=== PATIENT | male | born 1925 | race Caucasian/White ===

== ENCOUNTER → 2016-09-19 | Outpatient (CLI) | payer OTHER ==
[~2016-09-19] MED LIST: ALBINS INH; ALBUAER2 INH; ASPEC81 PO; FERR27TA5 PO; FINA5TAB PO; HYDC25 PO; ISOS60TA25 PO; LOSA100T65 PO; METO25TA56 PO; MOME220A INH; MULTCAP31 PO; NTRGSL/4 UT; OMEG10007 PO; SIMV20TA5 PO; TERA1CAP63 PO; TIOT1AER INH
--- NOTE | 2016-09-19 13:29 | DIAGNOSTIC IMAGING REPORT ---
CHEST 2 VIEWS ROUTINE CLINICAL HISTORY: J44.9 Chronic obstructive pulmonary [id number] emphysematous change COMPARISON STUDY: 10/06/2013 FINDINGS: Mild emphysematous change. No focal infiltrate. Diaphragms are smooth. No evidence for cardiac enlargement. Moderate degenerative change thoracic spine. IMPRESSION: Chronic and emphysematous change. No acute process. Electronically signed by: Aidan Goyal M.D. 09/19/2016 1:27 PM
== END | disposition home or self-care (01) ==
LOC: C.RAD1850 13:14
PROVIDERS: ATTEND Internal Medicine Pulmonary Disease
DX: J44.9 Chronic obstructive pulmonary disease, unspecified (principal)

== ENCOUNTER → 2016-12-15 | Outpatient (CLI) | payer OTHER ==
--- NOTE | 2016-12-15 15:18 | DIAGNOSTIC IMAGING REPORT ---
BILATERAL CAROTID DOPPLER STUDY HISTORY: Carotid stenosis I65.29 Carotid artery stenosis, [id number] Subclavian art COMPARISON: 05/15/2016 TECHNIQUE: Real-time, grayscale, and color Doppler sonography of the carotid arteries was performed. Imaging reviewed in the transverse and longitudinal planes. All measurements were calculated based on NASCET criteria. FINDINGS: Antegrade flow is seen in the bilateral vertebral arteries. The brachial pressures are hemodynamically similar. Moderate plaque formation bilaterally. The peak systolic velocity within the right ICA is 132. The right systolic ratio is 1.1. The peak systolic velocity within the left ICA is 12. The left systolic ratio is 0.55. Moderate increase in velocity characteristics left common carotid artery. Unchanging findings of a left subclavian steal IMPRESSION: 1. No major change from the prior study. 2. 50-60% stenosis right internal carotid artery. 3. Moderate narrowing left common carotid artery. 5. Left subclavian steal unchanged Electronically signed by: Aidan Goyal M.D. 12/15/2016 3:16 PM Dictated Date/Time: 12/15/2016 3:14 PM
== END | disposition home or self-care (01) ==
LOC: C.ULTR 13:18
PROVIDERS: ATTEND Surgery
DX: I65.21 Occlusion and stenosis of right carotid artery (principal); I77.1 Stricture of artery

== ENCOUNTER → 2017-01-26 | Outpatient (CLI) | payer OTHER ==
[2017-01-26 12:02] LABS: BASO % 0.5 %; BASO ABS # 0.03 K/uL (0-0.2); COMPLETE YES; EOS % 3.5 %; HEMATOCRIT 33.3 % (42-52); IG% 0.2 %; LYMPH ABS # 1.04 K/uL (1.2-3.4); MEAN CORPUSCULAR HEMOGLOBIN 31.7 pg (25-34); MEAN CORPUSCULAR HGB CONC 34.8 g/dl (32-36); MEAN PLATELET VOLUME 11.3 fL (7.4-10.4); MONO % 9.3 %; NEUT % 67.5 %; PLATELET COUNT 189 K/uL (130-400); RED BLOOD COUNT 3.66 M/uL (4.7-6.1); WHITE BLOOD COUNT 5.48 K/uL (4.8-10.8)
[2017-01-26 12:07] LABS: ALT/SGPT 24 U/L (12-78); BLOOD UREA NITROGEN 29 mg/dl (7-18); BUN/CREATININE RATIO 24.1 (10-20); CARBON DIOXIDE 23 mmol/L (21-32); CHLORIDE 103 mmol/L (98-107); CHOLESTEROL 142 mg/dl (0-200); GLUCOSE 100 mg/dl (70-99); SODIUM 136 mmol/L (136-145)
[2017-01-26 12:17] LABS: CALCIUM 9.5 mg/dl (8.5-10.1)
[2017-01-26 12:44] LABS: ESTIMATED AVERAGE GLUCOSE 128 mg/dl; HA1C FLAG Normal (Normal)
[2017-01-26 12:57] LABS: AST/SGOT 17 U/L (15-37); TRIGLYCERIDES 77 mg/dl (0-150); VERY LOW DENSITY LIPOPROT CALC 15 mg/dl
[2017-01-26 13:15] LABS: ALB/GLOB RATIO 1.3 (0.9-2)
[2017-01-26 13:58] LABS: ALKALINE PHOSPHATASE 82 U/L (45-117); HDL CHOLESTEROL 70 mg/dl; THYROID STIMULATING HORMONE 0.147 uIu/ml (0.300-4.500)
== END | disposition home or self-care (01) ==
LOC: C.LABBFT 10:08
PROVIDERS: ATTEND Internal Medicine
DX: R73.01 Impaired fasting glucose (principal); I20.9 Angina pectoris, unspecified; E78.00 Pure hypercholesterolemia, unspecified; E05.90 Thyrotoxicosis, unspecified without thyrotoxic crisis or storm; E55.9 Vitamin D deficiency, unspecified

== ENCOUNTER → 2017-02-06 | Outpatient (CLI) | payer OTHER ==
[2017-02-06 17:56] LABS: THYROID STIMULATING HORMONE 0.207 uIu/ml (0.300-4.500)
== END | disposition home or self-care (01) ==
LOC: C.LABBFT 09:49
PROVIDERS: ATTEND Physician Assistant Medical
DX: E05.90 Thyrotoxicosis, unspecified without thyrotoxic crisis or storm (principal)

== ENCOUNTER → 2017-08-06 | Outpatient (CLI) | payer OTHER ==
[2017-08-06 17:12] LABS: BASO % 0.8 %; BASO ABS # 0.04 K/uL (0-0.2); COMPLETE YES; EOS % 5.9 %; HEMATOCRIT 30.5 % (42-52); IG% 0.2 %; LYMPH % 25.6 %; LYMPH ABS # 1.34 K/uL (1.2-3.4); MEAN CORPUSCULAR HGB CONC 34.1 g/dl (32-36); MEAN PLATELET VOLUME 11.1 fL (7.4-10.4); MONO % 12.8 %; NEUT % 54.7 %; PLATELET COUNT 192 K/uL (130-400); RED BLOOD COUNT 3.35 M/uL (4.7-6.1); WHITE BLOOD COUNT 5.24 K/uL (4.8-10.8)
[2017-08-06 17:17] LABS: ALT/SGPT 25 U/L (12-78); BLOOD UREA NITROGEN 28 mg/dl (7-18); BUN/CREATININE RATIO 18.8 (10-20); CALCIUM 9.1 mg/dl (8.5-10.1); CARBON DIOXIDE 26 mmol/L (21-32); CHLORIDE 102 mmol/L (98-107); CREATININE 1.51 mg/dl (0.60-1.40); GLUCOSE 98 mg/dl (70-99); POTASSIUM 4.1 mmol/L (3.5-5.1); SODIUM 136 mmol/L (136-145)
[2017-08-06 17:27] LABS: ALB/GLOB RATIO 1.2 (0.9-2); ALKALINE PHOSPHATASE 111 U/L (45-117); AST/SGOT 16 U/L (15-37); THYROID STIMULATING HORMONE 0.227 uIu/ml (0.300-4.500)
[2017-08-07 06:30] LABS: ESTIMATED AVERAGE GLUCOSE 131 mg/dl; HA1C FLAG Normal (Normal)
== END | disposition home or self-care (01) ==
LOC: C.LABBFT 15:26
PROVIDERS: ATTEND Internal Medicine
DX: R73.01 Impaired fasting glucose (principal); D64.9 Anemia, unspecified; E05.90 Thyrotoxicosis, unspecified without thyrotoxic crisis or storm; E55.9 Vitamin D deficiency, unspecified